=== PATIENT | male | born 1975 | race Caucasian/White ===

== ENCOUNTER 2020-07-22 10:40 | Outpatient (CLI) | payer OTHER, SELFPAY ==
[2020-07-22 10:50] LABS: Basophils Absolute Auto 0.03 K/mm3 (0.00-0.10); Basophils Percent Auto 0.7 % (0.0-1.0); Eosinophils Absolute Auto 0.08 K/mm3 (0.02-0.50); Eosinophils Percent Auto 1.8 % (1.0-6.0); Hematocrit 47.5 % (40.0-54.0); Immature Granulocyte Absolute 0.01 K/mm3 (0.00-0.00); Immature Granulocyte Percent A 0.2 % (0.0-0.0); Lymphocytes Percent Auto 37.8 % (18.0-42.0); Mean Corpuscular HGB Conc 31.6 g/dL (32.0-36.0); Mean Corpuscular Hemoglobin 30.2 pg (27.0-31.0); Mean Corpuscular Volume 95.6 fL (78.0-102.0); Mean Platelet Volume 9.3 fl (8.7-11.0); Monocytes Absolute Auto 0.36 K/mm3 (0.10-0.90); Neutrophils Absolute Auto 2.3 K/mm3 (1.7-7.2); Neutrophils Percent Auto 51.5 % (50.0-70.0); Platelet Count Result 178 K/mm3 (150-420); Red Blood Count 4.97 M/mm3 (4.70-6.10); Red Cell Distribution Width 11.5 % (11.6-14.4); White Blood Count 4.5 K/mm3 (4.8-10.8)
[2020-07-22 11:40] LABS: Alanine Aminotransferase 18 U/L (16-63); Albumin Level 4.1 g/dL (3.4-5.0); Alkaline Phosphatase 75 U/L (46-116); Anion Gap 6 mmol/L (8-16); Aspartate Amino Transferase 30 U/L (15-37); Bilirubin,Total 0.5 mg/dL (0.00-1.00); Blood Urea Nitrogen 17 mg/dL (7-18); Calcium 8.9 mg/dL (8.5-10.1); Carbon Dioxide 30 mmol/L (21-32); Chloride 104 mmol/L (98-108); Cholesterol 204 mg/dL (0-200); Estimated Glomerular Filt Rate > 60; Glucose 99 mg/dL (70-99); HDL Direct 69 mg/dL (40-60); LDL Cholesterol Calculated 118 mg/dL (<130); Osmolality Calculated 291 mOsm/kg (285-295); Potassium 4.2 mmol/L (3.5-5.1); Sodium 140 mmol/L (136-145); Triglycerides 83 mg/dL (0-150)
[2020-07-22 11:41] LABS: Thyroid Stimulating Hormone Reflex 1.67 u/IU/mL (0.36-3.74)
== END 2020-07-22 10:41 | disposition home or self-care (01) ==
LOC: CHSLAB 10:43
PROVIDERS: PCP Family Medicine; Visit Provider Family Medicine
DX: Z00.01 Encounter for general adult medical examination with abnormal findings (principal)
CPT/HCPCS: 36415; 80053; 80061; 84443; 85025

== ENCOUNTER 2021-03-20 08:47 | Outpatient (CLI) | payer OTHER, SELFPAY ==
[2021-03-20 14:23] LABS: SARS-CoV-2 RNA PCR Positive (Negative)
== END 2021-03-20 08:48 | disposition home or self-care (01) ==
PROVIDERS: PCP Family Medicine; Visit Provider Family Medicine
DX: R50.9 Fever, unspecified (principal); J02.9 Acute pharyngitis, unspecified; Z20.822 Contact with and (suspected) exposure to COVID-19
CPT/HCPCS: 87081; 87880; C9803; U0003; U0005

== ENCOUNTER 2021-10-30 07:56 | Outpatient (CLI) | payer OTHER, SELFPAY ==
[2021-10-30 09:00] LABS: Influenza A QL RT-PCR Negative (Negative); Influenza B QL RT-PCR Negative (Negative); SARS-CoV-2 RNA PCR Negative (Negative)
== END 2021-10-30 07:57 | disposition home or self-care (01) ==
LOC: CHSLAB 08:01
PROVIDERS: PCP Family Medicine; Visit Provider Nurse Practitioner Family
DX: J02.9 Acute pharyngitis, unspecified (principal); Z20.822 Contact with and (suspected) exposure to COVID-19
CPT/HCPCS: 87502; C9803; U0003; U0005

== ENCOUNTER 2022-01-10 04:37 | Emergency (ER) | payer OTHER, SELFPAY ==
[2022-01-10] VITALS (8 sets, daily range): BP systolic 126–194; BP diastolic 90–120; PULSE 46–60; RESP 14–16; TEMP 36.4; O2SAT 97–100
--- NOTE | ~2022-01-10 | XR_ITS ---
EXAMINATION: XR chest 1V portable DATE: 01/10/2022 06:54 INDICATION: Hypertension. TECHNIQUE: A single frontal view of the chest was obtained on 2 radiographs. COMPARISON: Chest 2 views 10/15/2016 FINDINGS: The chest demonstrates clear lungs without pneumonia, pleural effusion, or pneumothorax. Th e heart size is normal. IMPRESSION: 1. No acute cardiopulmonary disease. Reviewed, dictated and finalized at location A. LUMIN METALWORKER
--- NOTE | ~2022-01-10 | CT_ITS ---
EXAMINATION: CT facial bones wo con DATE: 01/10/2022 06:54 INDICATION: Left facial pain. TECHNIQUE: Computed tomography (CT) of the facial bones and maxillofacial region was performed withou t intravenous contrast. Automated exposure control and iterative reconstruction technique were employ ed. The dose-length product was 681.00 mGy-cm. COMPARISON: None. FINDINGS: There is mild mucosal thickening in the paranasal sinuses. There is rightward deviation of the anterior nasal septum. No fracture. The orbits are normal. IMPRESSION: 1. No fracture. Reviewed, dictated and finalized at location A. MOBILE DEALER IMPRESSION: 1. No fracture.
--- NOTE | ~2022-01-10 | CT_ITS ---
EXAMINATION: CT brain wo con DATE: 01/10/2022 06:53 INDICATION: Headache. Left face pain. Facial weakness. TECHNIQUE: Computed tomography (CT) of the head was performed without intravenous contrast. The mA wa s adjusted according to patient size. Iterative reconstruction technique was employed. The dose-lengt h product was 681.00 mGy-cm. COMPARISON: None FINDINGS: There is no intracranial hemorrhage, acute infarction, or abnormal intracranial mass lesion . The ventricles are normal in size. The orbits are normal. There is mild mucosal thickening in the p aranasal sinuses. The mastoid air cells are normal. IMPRESSION: 1. Normal brain. Reviewed, dictated and finalized at location A. E COMMERCE ARCHITECT IMPRESSION: 1. Normal brain.
--- NOTE | 2022-01-10 05:00 | ECG_ITS ---
Measurements Intervals [place] Rate: 48 P: -16 ME: 129 QRS: 69 QRSD: 91 T: 48 QT: 415 QTc: 372 Interpretive Statements SINUS BRADYCARDIA Borderline ECG NO PREVIOUS ECG AVAILABLE FOR COMPARISON Electronically Signed On 01-10-2022 13:04:14 MESMERIST by Elvis Toure M.D.
--- NOTE | 2022-01-10 05:06 | ED.NEUROSD ---
HPI - Neuro Symptoms/Deficit General Chief Complaint: Dental/Oral <Emeterio Song MD - Last Filed: 01/14/22 23:44> Stated Complaint: allergic reation <Emeterio Song MD - Last Filed: 01/14/22 23:44> Time Seen by Provider: 01/10/22 04:39 <Emeterio Song MD - Last Filed: 01/14/22 23:44> Source: patient and RN notes reviewed <Emeterio Song MD - Last Filed: 01/14/22 23:44> Mode of arrival: ambulatory <Emeterio Song MD - Last Filed: 01/14/22 23:44> Limitations: no limitations <Emeterio Song MD - Last Filed: 01/14/22 23:44> History of Present Illness Onset (ago): week(s) (1) <Emeterio Song MD - Last Filed: 01/14/22 23:44> Timing confirmed by: other (Pt has increased left facial pain and tingling/numbness x this AM. Pt on Tx for left dental pain x 1 week.) <Emeterio Song MD - Last Filed: 01/14/22 23:44> Location: left face <Emeterio Song MD - Last Filed: 01/14/22 23:44> History of same: No <Emeterio Song MD - Last Filed: 01/14/22 23:44> Severity: moderate <Emeterio Song MD - Last Filed: 01/14/22 23:44> Quality: numb and tingling <Emeterio Song MD - Last Filed: 01/14/22 23:44> Relieving factors: none <Emeterio Song MD - Last Filed: 01/14/22 23:44> Exacerbating factors: none <Emeterio Song MD - Last Filed: 01/14/22 23:44> Context: sudden onset <Emeterio Song MD - Last Filed: 01/14/22 23:44> On Anticoagulants: No <Emeterio Song MD - Last Filed: 01/14/22 23:44> Associated symptoms: headaches <Emeterio Song MD - Last Filed: 01/14/22 23:44> Treatments Prior to Arrival: none <Emeterio Song MD - Last Filed: 01/14/22 23:44> Related Data Allergies/Adverse Reactions: Allergies Allergy/AdvReac Type Severity Reaction Status Date / Time Penicillins Allergy Unknown Unknown Verified 01/12/22 07:36 <Emeterio Song MD - Last Filed: 01/14/22 23:44> Review of Systems Review of Systems: All systems reviewed & are unremarkable except as noted in HPI and below <Emeterio Song MD - Last Filed: 01/14/22 23:44> PMFSH Past Medical History Medical History: Medical History Depression Facial numbness DARIUS (generalized anxiety disorder) HTN (hypertension) Scrotal mass <Emeterio Song MD - Last Filed: 01/14/22 23:44> Surgical History Surgical History: Surgical History History of appendectomy <Emeterio Song MD - Last Filed: 01/14/22 23:44> Family History Family History: Family History Father Diabetes mellitus <Emeterio Song MD - Last Filed: 01/14/22 23:44> Social History Social History: Social History Smoking status: Never smoker Alcohol intake: current Substance use: never Substance use type: does not use Additional living arrangements comments: , one child. 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 [employer] <Emeterio Song MD - Last Filed: 01/14/22 23:44> Exam Const: General: no acute distress and alert <Emeterio Song MD - Last Filed: 01/14/22 23:44> Nutritional Appearance: well nourished <Emeterio Song MD - Last Filed: 01/14/22 23:44> Orientation/consciousness: patient oriented x3 <Emeterio Song MD - Last Filed: 01/14/22 23:44> Other: no acute left facial abnormality <Emeterio Song MD - Last Filed: 01/14/22 23:44> HENMT: Head: normal to inspection <Emeterio Song MD - Last Filed: 01/14/22 23:44> Ears: external ears normal, TM's normal bilaterally and EAC's normal <Emeterio Song MD - Last Filed: 01/14/22 23:44> General nose exam: Normal external nose present and Normal nares present
[2022-01-10] MEDS: SODIUM CHLORIDE 0.9% IV 500 ML 999 ML IV CONT ×2 (05:22→06:35)
[2022-01-10] MEDS: MORPHINE SULFATE (*CRX) 2 MG/ML INJ IV PUSH (05:23)
[2022-01-10 05:27] LABS: Basophils Absolute Auto 0.02 K/mm3 (0.00-0.10); Basophils Percent Auto 0.3 % (0.0-1.0); Eosinophils Absolute Auto 0.14 K/mm3 (0.02-0.50); Eosinophils Percent Auto 1.9 % (1.0-6.0); Hematocrit 41.8 % (40.0-54.0); Immature Granulocyte Absolute 0.02 K/mm3 (0.00-0.00); Immature Granulocyte Percent A 0.3 % (0.0-0.0); Lymphocytes Absolute Auto 1.97 K/mm3 (1.10-4.50); Lymphocytes Percent Auto 26.1 % (18.0-42.0); Mean Corpuscular HGB Conc 33.5 g/dL (32.0-36.0); Mean Corpuscular Hemoglobin 31.1 pg (27.0-31.0); Mean Corpuscular Volume 92.9 fL (78.0-102.0); Mean Platelet Volume 9.5 fl (8.7-11.0); Monocytes Absolute Auto 0.85 K/mm3 (0.10-0.90); Monocytes Percent Auto 11.3 % (2.0-11.0); Neutrophils Absolute Auto 4.5 K/mm3 (1.7-7.2); Neutrophils Percent Auto 60.1 % (50.0-70.0); Platelet Count Result 192 K/mm3 (150-420); White Blood Count 7.5 K/mm3 (4.8-10.8)
[2022-01-10] MEDS: ONDANSETRON INJ 4 MG/2 ML VIAL IV PUSH ×2 (05:27→07:49)
--- NOTE | 2022-01-10 05:39 | PC.NURSE ---
RN called ERP to report pt's heart rate of 48 before giving ordered clonidine. ERP advised RN to hold medication recheck vitals in 20 minutes.
[2022-01-10 05:46] LABS: Alanine Aminotransferase 29 U/L (16-63); Albumin Level 3.7 g/dL (3.4-5.0); Alkaline Phosphatase 81 U/L (46-116); Anion Gap 12 mmol/L (8-16); Aspartate Amino Transferase 25 U/L (15-37); Bilirubin,Total 0.3 mg/dL (0.00-1.00); Blood Urea Nitrogen 13 mg/dL (7-18); Calcium 8.6 mg/dL (8.5-10.1); Carbon Dioxide 25 mmol/L (21-32); Chloride 102 mmol/L (98-108); Estimated Glomerular Filt Rate > 60; Glucose 103 mg/dL (70-99); Lactic Acid Reflex 0.5 mmol/L (0.4-2.0); Osmolality Calculated 288 mOsm/kg (285-295); Sodium 139 mmol/L (136-145); Total Protein 6.9 g/dL (6.4-8.2); Troponin I 6.7 ng/L (0.00-60.4)
[2022-01-10 05:47] LABS: Ethanol < 3 mg/dL (0-6)
[2022-01-10 06:16] LABS: Add Urine Microscopic? NO; Appearance Urine Clear (Clear); Bilirubin Urine Negative (Negative); Blood Urine Negative (Negative); Color Urine Light Yellow (Yellow); Glucose Urine UA Negative (Negative); Ketones Urine Negative (Negative); Leukocyte Esterase Ur Negative (Negative); Nitrate Urine Negative (Negative); Protein Urine Negative (Negative); Specific Grav Ur <= 1.005 (1.010-1.020); Urobilinogen Urine 0.2 mg/dL (0.2-1.0)
[2022-01-10 06:23] LABS: Amphetamine Screen Urine Negative (Negative); Barbiturate Screen Urine Negative (Negative); Benzodiazepines Screen Urine Negative (Negative); Cannabinoid Screen Urine Negative (Negative); Cocaine Screen Urine Negative (Negative); Methadone Screen Urine Negative (Negative); Opiate Screen Urine Positive (Negative); Phencyclidine Screen Urine Negative (Negative)
[2022-01-10] MEDS: KETOROLAC (*BKC) 60 MG/2 ML VIAL IM (06:36)
[2022-01-10] MEDS: cloNIDine HCL 0.2 MG TABLET PO (06:39)
--- NOTE | 2022-01-10 07:05 | ECG_ITS ---
Measurements Intervals [place] Rate: 42 P: -63 AL: 152 QRS: 68 QRSD: 96 T: 56 QT: 472 QTc: 398 Interpretive Statements SINUS BRADYCARDIA WITH SINUS ARRHYTHMIA BORDERLINE ECG COMPARED TO ECG 01/10/2022 05:16:13 SINUS ARRHYTHMIA NOW PRESENT Electronically Signed On 01-10-2022 13:04:28 RESUME WRITER by Elvis Toure M.D.
[2022-01-10 07:44] LABS: Troponin I 6.4 ng/L (0.00-60.4)
[2022-01-10] MEDS: MAG HYDROX/ALUMINUM HYD/SIMETH 30 ML, PHENobarb/HYOSCY/ATROPINE/SCOP 32.4 MG, LIDOCAINE... PO (07:50)
== END 2022-01-10 08:41 | disposition home or self-care (01) ==
PROVIDERS: Emergency Medicine; Emergency Provider Emergency Medicine; PCP Family Medicine
DX: K04.7 Periapical abscess without sinus (principal); I10 Essential (primary) hypertension
CPT/HCPCS: 36415; 70450; 70486; 71045; 80053; 80307; 81003; 83605; 84484; 85025; 93005; 96361; 96365; 96372; 96375; 96376; 99284; A9270; J0696; J1885; J2270; J2405; J7040

== ENCOUNTER 2022-02-10 | Emergency (ER) | payer OTHER, SELFPAY ==
[2022-02-10 00:05] VITALS: BP 147/80; PULSE 80; RESP 20; TEMP 36.4
[2022-02-10] MEDS: CLINDAMYCIN HCL 150 MG CAP 450 MG PO (00:35)
[2022-02-10] MEDS: LIDOCAINE HCL 1% LOCAL INJ 20 ML VIAL 5 ML INFILTRATE (00:40)
--- NOTE | 2022-02-10 00:50 | ED.GENADULT ---
HPI - General Adult General Chief complaint: Unspecified Stated complaint: Face swelling Source: patient Mode of arrival: ambulatory Limitations: no limitations History of Present Illness HPI narrative: Marciano presented to the ER with pain in his left lower jaw and swelling. It has been going on for over a month or so. He has had numerous rounds of antibiotics and seen a dentist who said his teeth were fine. Over the last couple days the pain and swelling in his left cheek became worse despite tylenol and diclofenac. No fevers, chills, N/V, dysphagia, drooling. No SOB or trouble breathing. In addition he reports that he has pain around meal time but not necessarily with chewing. Related Data Home Medications Medication Instructions Recorded Confirmed clindamycin HCl [Cleocin HCl] See Rx Instructions .ROUTE .COMPLEX 02/10/22 02/10/22 diclofenac sodium See Rx Instructions .ROUTE .COMPLEX 02/10/22 02/10/22 Allergies Allergy/AdvReac Type Severity Reaction Status Date / Time Penicillins Allergy Unknown Unknown Verified 01/12/22 07:36 Review of Systems Review of Systems: All systems reviewed & are unremarkable except as noted in HPI and below PMFSH Past Medical History Medical History Depression Facial numbness DARIUS (generalized anxiety disorder) HTN (hypertension) Scrotal mass Surgical History Surgical History History of appendectomy Family History Family History Father Diabetes mellitus Social History Social History Smoking status: Never smoker Alcohol intake: current Substance use: never Substance use type: does not use Additional living arrangements comments: , one child. 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 His left inferior cheek was very swollen as well. There was no erythema on the skin. Eyes: General: appearance normal, both eyes and all related structures Neck: Other: left anterior cervcal lymphadenopathy Chest: Chest palpation & inspection: normal inspection of the chest Resp: Effort & Inspection: normal respiratory effort Cardio: Rate: regular rate GI: Inspection: normal to inspection Skin: General skin exam: normal color and no rashes or lesions noted Neuro: General: oriented to person, oriented to place and oriented to time Extrem: General: normal to inspection Psych: Appearance: grossly normal Course Course Emergency Course: Given findings around tooth 18 I believe he does have a dental abscess. However, a normal dental exam and multiple rounds of antibiotics without resolution is concerning. He was given clindamycin and symptoms completely resolved with a dental block. However, he will follow up in clinic later in the week for further workup for possible parotiditis, sialoadenitis, or sialolithiasis. He was also instructed to follow up with a diesel powerplant mechanic helper Vital Signs Vital signs: Vital Signs Temperature 97.6 F 02/10/22 00:05 Pulse Rate 80 02/10/22 00:05 Respiratory Rate 20 02/10/22 00:05 Blood Pressure 147/80 H 02/10/22 00:05 Temperature 97.6 F 02/10/22 00:05 Pulse Rate 80 02/10/22 00:05 Respiratory Rate 20 02/10/22 00:05 Blood Pressure 147/80 H 02/10/22 00:05 Procedures Nerve Block Nerve Block 1: Nerve block date: 02/10/22 Local Anesthetic: lidocaine 1% Amount of anesthesia used (mL): 1.5 Side: left Intraoral Nerve Block: inferior alveolar Procedure Successful: Yes
[2022-02-10 00:54] VITALS: BP 140/88; PULSE 80; RESP 16; TEMP 36.6
== END 2022-02-10 00:56 | disposition home or self-care (01) ==
PROVIDERS: Emergency Provider Family Medicine; PCP Family Medicine
DX: K04.7 Periapical abscess without sinus (principal)
CPT/HCPCS: 64400; 99283; A9270

== ENCOUNTER 2025-01-05 10:37 | Outpatient (CLI) | payer OTHER, SELFPAY ==
--- OUTSIDE RECORDS SUMMARY | 2025-01-05 12:10 | XMS_ITS | Referral Summary ---
Author Organization [facility] Address [address] [place] [address] Care Team Providers Care Prosthetic Assistant Name Role Phone Roderick Mims MD Primary Care Provider [phone] [facility],non-owned Affiliates and Associated Physician Practices is amultiple site organization consisting of ambulatory clinics and hospital sitesin [place], [place], [place] and [place]. This disclosure is being madepursuant to the Care Everywhere program and may not contain all information available regarding this patient. Last updated 18.[facility] Attachments.me Allergies Active Allergy Reactions Criticality Noted Date Comments Penicillins Rash Medium 11/10/2018 Medications * Be aware that medications may not be up to date on this document. Alwaysverify current medications with the patient. Medication Sig Dispensed Refills Start Date End Date Status predniSONE (DELTASONE) 20 MG tablet 60mg PO QD x5 days, then 40mg PO QD x5 days, then 20mg PO QD x5 days. Take with food. 30 tablet 11/10/2018 Active Social History Tobacco Use Types Packs/Day Years Used Date Smoking Tobacco: Never Smokeless Tobacco: Never Sex and Gender Information Value Date Recorded Sex Assigned at Not on file Gender Identity Not on file Sexual Orientation Not on file Last Filed Vital Signs Vital Sign Reading Time Taken Comments Blood Pressure 130/88 11/10/2018 4:07 PM CONSULTING NURSE Pulse 69 11/10/2018 4:07 PM CONSULTING NURSE Temperature 37.2 C (98.9 F) 11/10/2018 4:07 PM CONSULTING NURSE Respiratory Rate 16 11/10/2018 4:07 PM CONSULTING NURSE Oxygen Saturation 98% 11/10/2018 4:07 PM CONSULTING NURSE Inhaled Oxygen Concentration - - Weight 93 kg (205 lb) 11/10/2018 4:07 PM CONSULTING NURSE Height 182.9 cm (6') 11/10/2018 4:07 PM CONSULTING NURSE Body Mass Index 27.8 11/10/2018 4:07 PM CONSULTING NURSE Plan of Treatment Not on file Care Teams Prosthetic Assistant Relationship Specialty Start Date End Date Roderick Mims MD [address] [place] [address] PCP - General Family Medicine 11/10/18
--- OUTSIDE RECORDS SUMMARY | 2025-01-05 12:10 | XMS_ITS | Clinical Summary ---
Author Organization [facility] [employer] Address [address] [place] [address] Care Team Providers Care Retail Operations Specialist Name Role Phone Roderick Mims MD Primary Care Provider [phone] Source Comments [facility] [place] [facility],non-owned Affiliates and Associated Physician Practices is amultiple site organization consisting of ambulatory clinics and hospital sitesin [place], [place], [place] and [place]. This disclosure is being madepursuant to the Care Everywhere program and may not contain all information available regarding this patient. Last updated 18.[facility] [employer] Allergies Active Allergy Reactions Criticality Noted Date [...] Comments Blood Pressure 130/88 11/10/2018 4:07 PM CLINICAL RESEARCHER Pulse 69 11/10/2018 4:07 PM CLINICAL RESEARCHER Temperature 37.2 C (98.9 F) 11/10/2018 4:07 PM CLINICAL RESEARCHER Respiratory Rate 16 11/10/2018 4:07 PM CLINICAL RESEARCHER Oxygen Saturation 98% 11/10/2018 4:07 PM CLINICAL RESEARCHER Inhaled Oxygen Concentration - - Weight 93 kg (205 lb) 11/10/2018 4:07 PM CLINICAL RESEARCHER Height 182.9 cm (6') 11/10/2018 4:07 PM CLINICAL RESEARCHER Body Mass Index 27.8 11/10/2018 4:07 PM CLINICAL RESEARCHER Plan of Treatment Health Maintenance Due Date Last Done Comments COLOGALVINORD (AGES 45-75) - COL ON CA SCREENING 1977 COLON MONITORING 1977 COLONOSCOPY - COLON CA SCREENING 1977 CT COLONOGRAPHY - COLON CA SCREENING 1977 Colorectal Cancer Screening 1977 FIT - COLON CA SCREENING 1977 FLEX SIG - COLON CA SCREENING 1977 LIPID TESTING 1977 HIV SCREENING 01/11/1992 HEPATITIS C SCREENING 01/06/1995 DTAP/TDAP/TD VACCINES (1 - Tdap) 01/11/1996 HEPATITIS B VACCINE (1 of 3 - 19+ 3-dose series) 01/11/1996 SCREENING FOR DIABETES 11/10/2018 COVID-19 VACCINE (1 - 2023-2 5 season) 2024 INFLUENZA VACCINE (#1) 2024 DEPRESSION SCREENING 11/04/2024 ZOSTER VACCINE (1 of 2) 2027 HIB VACCINE Aged Out No longer eligi ble based on patient's age to complete this topic HPV VACCINE Aged Out No longer eligi ble based on patient's age to complete this topic MENINGOCOCCAL (Group B) VACCINE Aged Out No longer eligible based on patient's age to complete this topic MENINGOCOCCAL VACCINE Aged Out No arias gurinder eligible based on patient's age to complete this topic PNEUMOCOCCAL VACCINE Aged Out No long er eligible based on patient's age to complete this topic Care Teams Retail Operations Specialist Relationship Specialty Start Date End Date Roderick Mims MD [address] [place] [id number] PCP - General Family Medicine 11/10/18
--- OUTSIDE RECORDS SUMMARY | 2025-01-05 12:10 | XMS_ITS | Clinical Summary ---
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
--- OUTSIDE RECORDS SUMMARY | 2025-01-05 12:10 | XMS_ITS | Encounter Summary ---
Author Organization [facility] Address 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
--- OUTSIDE RECORDS SUMMARY | 2025-01-05 12:10 | XMS_ITS | Patient Health Summary ---
Author Organization [facility] Address [address] [place] [address] Care Team Providers Care Antique Furniture Restorer Name Role Phone Roderick Mims MD Primary Care Provider [phone] [facility],non-owned Affiliates and Associated Physician Practices is amultiple site organization consisting of ambulatory clinics and hospital sitesin [place], [place], [place] and [place]. This disclosure is being madepursuant to the Care Everywhere program and may not contain all information available regarding this patient. Last updated 18.[facility] Allergies * Penicillins(Rash) -Medium Criticality Medications * Be aware that medications may not be up to date on this document. Alwaysverify current medications with the patient. * predniSONE (DELTASONE) 20 MG tablet(Started 11/10/2018) 60mg PO QD x5 days, then 40mg PO QD x5 days, then 20mg PO QD x5 days. Take with food. Social History Tobacco Use Types Packs/Day Years Used Date Smoking Tobacco: Never Smokeless Tobacco: Never Sex and Gender Information Value Date Recorded Sex Assigned at Not on file Gender Identity Not on file Sexual Orientation Not on file Last Filed Vital Signs Vital Sign Reading Time Taken Comments Blood Pressure 130/88 11/10/2018 4:07 PM LENDING MANAGER Pulse 69 11/10/2018 4:07 PM LENDING MANAGER Temperature 37.2 C (98.9 F) 11/10/2018 4:07 PM LENDING MANAGER Respiratory Rate 16 11/10/2018 4:07 PM LENDING MANAGER Oxygen Saturation 98% 11/10/2018 4:07 PM LENDING MANAGER Inhaled Oxygen Concentration - - Weight 93 kg (205 lb) 11/10/2018 4:07 PM LENDING MANAGER Height 182.9 cm (6') 11/10/2018 4:07 PM LENDING MANAGER Body Mass Index 27.8 11/10/2018 4:07 PM LENDING MANAGER Care Teams Antique Furniture Restorer Relationship Specialty Start Date End Date Roderick Mims MD [address] [place], [place] [id number] PCP - General Family Medicine 11/10/18
[2025-01-07 17:45] LABS: Almond (F20) IgE 4.11 kU/L; Brazil Nut (f18) 1.07 kU/L; Brazil Nut (f18) Class 2; Cashew Nut (F202) IgE 2.08 kU/L; Cashew Nut (F202) IgE Class 2; Codfish (F3) IgE 0.25 kU/L; Codfish (F3) IgE Class 0/1; Cow's Milk (F2) IgE 0.36 kU/L; Cow's Milk (F2) IgE Class 1; Egg White (F1) IgE 0.17 kU/L; Egg White (F1) IgE Class 0/1; Hazelnut (F17) IgE 3.18 kU/L; Hazelnut (F17) IgE Class 2; Macadamia Nut (rf345) 4.24 kU/L; Macadamia Nut (rf345) Class 3; Peanut (F13) IgE Class 3; Salmon (F41) IgE Class 0/1; Scallop (F338) IgE 3.01 kU/L; Scallop (F338) IgE Class 2; Sesame Seed 4.88 kU/L; Shrimp (F24) IgE 0.68 kU/L; Soybean (F14) IgE 3.65 kU/L; Soybean (F14) IgE Class 3; Tuna (F40) <0.10 kU/L; Tuna (F40) Class 0; Walnut (F256) IgE 2.79 kU/L; Walnut (F256) IgE Class 2; Wheat (F4) IgE 4.77 kU/L; Wheat (F4) IgE Class 3
== END 2025-01-05 10:38 | disposition home or self-care (01) ==
LOC: CHSLAB 10:39
PROVIDERS: PCP Family Medicine; Visit Provider Family Medicine
DX: L25.9 Unspecified contact dermatitis, unspecified cause (principal)
CPT/HCPCS: 36415; 86003